=== PATIENT | male | born 1960 | race American Indian/Alaskan Native ===

== ENCOUNTER 2021-01-21 12:16 | Emergency (ER) | payer SELFPAY ==
[2021-01-21] MEDS ORDERED: SODIUM CHLORIDE 0.9% 1000 ML 1,000 ML IV ONE (13:15)
--- NOTE | 2021-01-21 13:19 | Event Note ---
ED Screening Note Date of service: 01/21/21 Time: 13:17 ED Screening Note: 60-year-old male with a past medical history of hypertension and diabetes who has been noncompliant with his medication for 1 year presents to the ER with complaints of feeling dizzy and off-balance. Patient states that he has been feeling this way x2 days. He states that he has been walking into the [place] of his house because of his dizziness. He reports intermittent shortness of breath but no chest pain. Here he denies any speech changes. He reports history of chronic blurry vision nothing worse recently. He reports generalized weakness, but no focal weakness, or numbness tingling. Patient states that he typically lives in [place], but since the pandemic he has been here in [place]. He has not established with a PCP here in [place]. This initial assessment/diagnostic orders/clinical plan/treatment(s) is/are subject to change based on patients health status, clinical progression and re- assessment by fellow clinical providers in the ED. Further treatment and workup at subsequent clinical providers discretion. Patient/guardian urged not to elope from the ED as their condition may be serious if not clinically assessed and managed. Initial orders include: Labs/EKG/CT head
[2021-01-21 13:45] LABS: Basophils # (Auto) 0.1 K/mm3 (0.0-0.1); Basophils % (Auto) 1.6 % (0.0-1.8); Eosinophils # (Auto) 0.3 K/mm3 (0.0-0.4); Eosinophils % (Auto) 5.3 % (0.0-4.3); Hematocrit 42.5 % (35.5-45.6); Lymphocytes % (Auto) 45.6 % (13.4-35.0); Mean Corpuscular HGB Conc 33 % (32-34); Mean Corpuscular Volume 82 fl (84-94); Monocytes # (Auto) 0.6 K/mm3 (0.0-0.8); Monocytes % (Auto) 8.7 % (0.0-7.3); Platelet Count 252 K/mm3 (140-440); Red Blood Count 5.17 M/mm3 (3.65-5.03); Red Cell Distribution Width 13.6 % (13.2-15.2)
--- NOTE | 2021-01-21 13:49 | XRay Report ---
CHEST 2 VIEWS INDICATION / CLINICAL INFORMATION: Lightheadedness/Dizziness. COMPARISON: None available. FINDINGS: SUPPORT DEVICES: None. HEART / MEDIASTINUM: No significant abnormality. LUNGS / PLEURA: No significant pulmonary or pleural abnormality. No pneumothorax. ADDITIONAL FINDINGS: No significant additional findings. IMPRESSION: 1. No acute findings. Signer Name: Keshawn Gonsales MD Signed: 01/21/2021 1:45 PM Workstation Name: [id number]
[2021-01-21 14:08] LABS: Alanine Aminotransferase 15 units/L (7-56); Albumin 4.4 g/dL (3.9-5); BUN/Creatinine Ratio 11; Blood Urea Nitrogen 11 mg/dL (9-20); Calcium 9.4 mg/dL (8.4-10.2); Hemolysis Index 22
--- NOTE | 2021-01-21 14:17 | Cat Scan Report ---
CT head/brain wo con INDICATION / CLINICAL INFORMATION: 60 years Male; dizzy off balance, Perez, HTN, DB. . TECHNIQUE: Routine CT head without contrast. All CT scans at this location are performed using CT dos e reduction for ALARA by means of automated exposure control. COMPARISON: None. FINDINGS: BRAIN / INTRACRANIAL CONTENTS: This mild cerebral white matter disease most consistent with microvasc ular angiopathy at. Small foci of calcification are seen within the right basal ganglia. The ventricu lar system is within normal limits in size and configuration. There is no clear CT evidence of acute intracranial hemorrhage or significant mass effect. ORBITS: No significant abnormality of visualized orbits. SINUSES / MASTOIDS: No significant abnormality in the visualized paranasal sinuses or mastoid air huey ls. CRANIOCERVICAL JUNCTION: No significant abnormality. ADDITIONAL FINDINGS: None. IMPRESSION: 1. This mild microvascular angiopathy without CT evidence of acute intracranial hemorrhage. Signer Name: Charles Romero MD Signed: 01/21/2021 2:12 PM Workstation Name: [id number]
[2021-01-21 16:08] VITALS: BP 168/101
--- NOTE | 2021-01-21 16:24 | Emergency Department Report ---
ED Dizziness HPI - General Chief Complaint: Dizziness Stated Complaint: DIABETIC FEELS DIZZY Time Seen by Provider: 01/21/21 16:05 Source: patient Mode of arrival: Ambulatory Limitations: No Limitations - History of Present Illness Initial Comments: Patient is a 60-year-old F [place]an male with a past medical history of hypertension diabetes high cholesterol who is presenting with 3 days of dizziness. States is worse yesterday and the day before. States felt as though when he is still. Feel off balance briefly. This continued throughout the days . Patient states he feels better today but wanted to come get checked out. States been out of all of his medications for the last year. States when COVID- 19 started patient stopped going to the doctor he also moved to [place] from [place] and has not been reestablished with any care here. Denies any chest pain shortness of breath focal weakness difficulty speaking nausea vomiting or diarrhea. Patient states he is drinking adequate fluids. - Related Data Previous Rx's Medication Instructions Recorded Last Taken Type Amlodipine Besylate [Norvasc] 5 mg PO DAILY #30 tablet 01/21/21 Unknown Rx Aspirin [Aspirin BABY CHEW TAB] 81 mg PO QDAY #30 tab.chew 01/21/21 Unknown Rx AtorvaSTATin [Lipitor] 40 mg PO QHS #30 tab 01/21/21 Unknown Rx Allergies Allergy/AdvReac Type Severity Reaction Status Date / Time No Known Allergies Allergy Verified 01/21/21 12:29 ED Review of Systems ROS: Stated complaint: DIABETIC FEELS DIZZY Other details as noted in HPI Comment: All other systems reviewed and negative ED Past Medical Hx - Past Medical History Previous Medical History?: Yes Hx Hypertension: Yes Hx Diabetes: Yes - Surgical History Past Surgical History?: No - Social History Smoking Status: Never Smoker - Medications Home Medications: Home Medications Medication Instructions Recorded Confirmed Last Taken Type Amlodipine Besylate [Norvasc] 5 mg PO DAILY #30 tablet 01/21/21 Unknown Rx Aspirin [Aspirin BABY CHEW TAB] 81 mg PO QDAY #30 tab.chew 01/21/21 Unknown Rx AtorvaSTATin [Lipitor] 40 mg PO QHS #30 tab 01/21/21 Unknown Rx ED Physical Exam - General Limitations: No Limitations General appearance: alert, in no apparent distress - Head Head exam: Present: atraumatic, normocephalic - Eye Eye exam: Present: normal appearance, PERRL, EOMI - ENT ENT exam: Present: mucous membranes moist - Neck Neck exam: Present: normal inspection - Respiratory Respiratory exam: Present: normal lung sounds bilaterally. Absent: respiratory distress, wheezes, rales, rhonchi - Cardiovascular Cardiovascular Exam: Present: regular rate, normal rhythm, normal heart sounds. Absent: systolic murmur, diastolic murmur, rubs, gallop - GI/Abdominal GI/Abdominal exam: Present: soft, normal bowel sounds. Absent: distended, tende rness, guarding, rebound, rigid - Rectal Rectal exam: Present: deferred - Extremities Exam Extremities exam: Present: normal inspection - Back Exam Back exam: Present: normal inspection - Neurological Exam Neurological exam: Present: alert, oriented X3, CN II-XII intact, normal gait, motor sensory deficit - Psychiatric Psychiatric exam: Present: normal affect, normal mood - Skin Skin exam: Present: warm, dry, intact, normal color. Absent: rash ED Course Vital Signs 01/21/21 01/21/21 01/21/21 12:29 16:07 16:11 Temperature 99.1 F 98.3 F 98.3 F Pulse Rate 81 69 69 Respiratory 16 21 21 Rate Blood Pressure 168/101 Blood Pressure 185/117 168/101 [Left] O2 Sat by Pulse 94 98 98 Oximetry ED Medical Decision Making - Lab Data Result diagrams: 01/21/21 13:28 01/21/21 13:28 Lab Results 01/21/21 01/21/21 01/21/21 Range/Units 12:35 13:28 13:28 WBC 6.5 (4.5-11.0) K/mm3 RBC 5.17 H (3.65-5.03) M/mm3 Hgb 14.0 (11.8-15.2) gm/dl Hct 42.5 (35.5-45.6) % MCV 82 L (84-94) fl MCH 27 L (28-32) pg MCHC 33 (32-34) % RDW 13.6 (13.2-15.2) % Plt Count 252 (140-440) K/mm3 Lymph % (Auto) 45.6 H (13.4-35.0) % [place] % (Auto) 8.7 H (0.0-7.3) % Eos % (Auto) 5.3 H (0.0-4.3) % Baso % (Auto) 1.6 (0.0-1.8) % Lymph # (Auto) 3.0 (1.2-5.4) K/mm3 [place] # (Auto) 0.6 (0.0-0.8) K/mm3 Eos # (Auto) 0.3 (0.0-0.4) K/mm3 Baso # (Auto) 0.1 (0.0-0.1) K/mm3 Seg Neutrophils % 38.8 L (40.0-70.0) % Seg Neutrophils # 2.5 (1.8-7.7) K/mm3 Sodium 139 (137-145) mmol/L Potassium 4.1 (3.6-5.0) mmol/L Chloride 103.2 (98-107) mmol/L Carbon Dioxide 23 (22-30) mmol/L Anion Gap 17 mmol/L BUN 11 (9-20) mg/dL Creatinine 1.0 (0.8-1.3) mg/dL Estimated GFR > 60 ml/min BUN/Creatinine Ratio 11 % Glucose 74 L (75-100) mg/dL POC Glucose 93 (70-105) mg/dL Calcium 9.4 (8.4-10.2) mg/dL Total Bilirubin 0.20 (0.1-1.2) mg/dL AST 22 (5-40) units/L ALT 15 (7-56) units/L Alkaline Phosphatase 71 (35-129) units/L Troponin T < 0.010 (0.00-0.029) ng/mL Total Protein 7.3 (6.3-8.2) g/dL Albumin 4.4 (3.9-5) g/dL Albumin/Globulin Ratio 1.5 % - Radiology Data [facility] [address] [place] [address] Cat Scan Report Signed Patient: JULES ERWIN MR#: [id number] : 1960 Acct:[id number] Age/Sex: 60 / M ADM Date: 01/21/21 Loc: ED Attending Dr: Ordering Physician: ABRAHAN INGRAM Date of Service: 01/21/21 Procedure(s): CT head/brain wo con Accession Number(s): [id number] cc: ABRAHAN INGRAM CT head/brain wo con INDICATION / CLINICAL INFORMATION: 60 years Male; dizzy off balance, Perez, HTN, DB. . TECHNIQUE: Routine CT head without contrast. All CT scans at this location are performed using CT dose reduction for ALARA by means of automated exposure control. COMPARISON: None. FINDINGS: BRAIN / INTRACRANIAL CONTENTS: This mild cerebral white matter disease most consistent with microvascular angiopathy at. Small foci of calcification are seen within the right basal ganglia. The ventricular system is within normal limits in size and configuration. There is no clear CT evidence of acute intracranial hemorrhage or significant mass effect. ORBITS: No significant abnormality of visualized orbits. SINUSES / MASTOIDS: No significant abnormality in the visualized paranasal sinuses or mastoid air cells. CRANIOCERVICAL JUNCTION: No significant abnormality. ADDITIONAL FINDINGS: None. IMPRESSION: 1. This mild microvascular angiopathy without CT evidence of acute intracranial hemorrhage. Signer Name: Charles Romero MD Signed: 01/21/2021 2:12 PM Workstation Name: [id number] Critical care attestation.: If time is entered above; I have spent that time in minutes in the direct care of this critically ill patient, excluding procedure time. ED Disposition Clinical Impression: Hypertensive urgency, Cerebral microvascular disease Disposition: HOME / SELF CARE / HOMELESS Is pt being admited?: No Does the pt Need Aspirin: No Condition: Stable Instructions: Hypertension, Adult, [id number], Dizziness, [id number] Additional Instructions: Microvascular disease of the brain is a condition where over long periods of time because of high blood pressure you lose small groupings of brain cells. This is different than a large stroke which was not seen today. Microvascular disease can lead to issues with memory and balance over time. This can also affect your coordination of a long peers of time as well. Please follow-up with your primary care doctor. Prescriptions: AtorvaSTATin [Lipitor] 40 mg PO QHS #30 tab Aspirin [Aspirin BABY CHEW TAB] 81 mg PO QDAY #30 tab.chew Amlodipine Besylate [Norvasc] 5 mg PO DAILY #30 tablet Referrals: MARTHA GEORGE MD [Staff Physician] - 3-5 Days Time of Disposition: 16:40 - Level of Consciousness 1a. Level of Consciousness: alert/keenly responsive - LOC Questions 1b. LOC Questions: answers both correctly - LOC Command 1c. LOC Commands: performs tasks correctly - Best Gaze 2. Best Gaze: normal - Visual 3. Visual: no visual loss - Facial Palsy 4. Facial Palsy: normal symmetrical movement - Motor Arm 5a. Motor Arm Left: no drift 5b. Motor Arm Right: no drift - Motor Leg 6a. Motor Leg Left: no drift 6b. Motor Leg Right: no drift - Limb Ataxia 7. Limb Ataxia: absent - Sensory 8. Sensory: normal - Best Language 9. Best Language: no aphasia - Dysarthria 10. Dysarthria: normal - Extinction and Inattention 11. Extinction/Inattention: no abnormality - Scoring Total Score: 0 Stroke Severity: No Stroke Symptoms
[2021-01-21 17:50] LABS: Bilirubin,Urine NEG (Negative); Blood,Urine SM (Negative); Color,Urine Yellow (Yellow); Mucus,Urine FEW /HPF; Protein,Urine <15 mg/dL mg/dL (Negative); Urobilinogen,Urine < 2.0 mg/dL (<2.0); WBC,Urine < 1.0 /HPF (0.0-6.0)
--- NOTE | 2021-01-22 08:34 | Electrocardiograph Report ---
[facility] Test Date: 2021-01-21 Test Time: 15:04:21 Pat Name: JULES ERWIN Department: Room: Gender: M Environmental Scientist: NORMA : 1960 Requested By: ABRAHAN INGRAM Order Number: [id number] Reading MD: Fito Hutchinson Measurements Intervals [place]erson Rate: 72 P: 42 AK: 222 QRS: -45 QRSD: 91 T: 86 QT: 378 QTc: 415 Interpretive Statements Sinus rhythm Ventricular premature complex Prolonged AK interval Inferior infarct, old No previous ECG available for comparison Electronically Signed On 01-22-2021 8:34:31 EDT by Fito Hutchinson
== END 2021-01-21 16:58 | disposition home or self-care (01) ==
LOC: ED 12:16
DX: I16.0 Hypertensive urgency (principal); I67.9 Cerebrovascular disease, unspecified; I10 Essential (primary) hypertension; E11.9 Type 2 diabetes mellitus without complications; Z79.82 Long term (current) use of aspirin; Z79.899 Other long term (current) drug therapy
CPT/HCPCS: 36415; 70450; 71046; 80053; 81001; 82962; 84484; 85025; 93005; 96360; 99284; J7030